=== PATIENT | female | born 1980 | race Caucasian/White ===

== ENCOUNTER 2016-12-17 21:01 | Emergency (ER) | payer BC ==
[~2016-12-17 21:01] MED LIST: AMBIEN10 M1 PO; AMOXICILLIN250 M1 PO; ANTIBIOTIC; ASPIRIN81 M1 PO; ATIVAN1 M2 PO; CALCIUM500 M3 PO; CYCLOBENZAPRINE5 M1 PO; HYDROCODON-ACE1 EA16 PO; HYDROCODON-ACE1 EA17 PO; IBUPROFEN200 M3 PO; KLONOPIN1 M1 PO; LAMICTAL200 M2 PO; MOBIC7.5 M2 PO; NICODERM CQ1 EAC2 TD; NO HOME MEDICATION XX; NORCO 5-325 TA1 EACH PO; PERCOCET 5-3251 EACH PO; REMERON; REMERON30 M1 PO; SYNTHROID137 MC1 PO; TRAZODONE HCL50 M1 PO; ZOLOFT25 M1 PO
[2016-12-17 22:33] LABS: URINE APPEARANCE HAZY; URINE BILIRUBIN NEGATIVE (NEG); URINE COLOR YELLOW; URINE GLUCOSE (UA) NEGATIVE (NEG); URINE KETONE NEGATIVE (NEG); URINE LEUKOCYTE ESTERASE POSITIVE (NEG); URINE PH 6.5 (5.0-8.0); URINE PROTEIN NEGATIVE (NEG)
[2016-12-17 22:34] LABS: URINE BLOOD SMALL (NEG); URINE NITRITE NEGATIVE (NEG)
[2016-12-17 22:41] LABS: URINE BACTERIA 1+; URINE EPITHELIAL CELLS RARE /[HPF] (0-10); URINE RBC 0-3 /[HPF] (0-5)
[2016-12-17 23:32] LABS: BASO % 0.4 % (0-2); BASO ABSOLUTE COUNT 0.1 tho/cmm (0.0-0.2); EOS % 1.4 % (0-7); EOSINOPHIL ABSOLUTE COUNT 0.2 tho/cmm (0.0-0.7); HCT-HEMATOCRIT 33.4 % (34.0-49.0); HGB-HEMOGLOBIN 10.7 gm/dl (12.0-15.5); IMMATURE GRANULOCYTES ABSOLUTE 0.04 tho/cmm (0-0.03); IMMATURE GRANULOCYTES PERCENT 0.3 % (0-0.3); LYMPH % 33.5 % (20-45); LYMPH ABSOLUTE COUNT 4.1 tho/cmm (0.8-4.5); MCH (MEAN CORPUSCULAR HGB) 25.2 pg (28.0-32.0); MCV (MEAN CELL VOLUME) 78.8 fl (82.0-96.0); MEAN PLATELET VOLUME 9.7 cmc (9.4-12.4); MONO % 4.5 % (0-12); MONOCYTE ABSOLUTE COUNT 0.6 tho/cmm (0.0-1.2); NEUTROPHIL ABSOLUTE COUNT 7.2 tho/cmm (1.6-8.0); NEUTROPHIL-AUTOMATED 7.2 tho/cmm (1.6-8.0); NEUTROPHILS % 59.9 % (40-80); PLATELET COUNT 510 tho/cmm (150-450); RED BLOOD COUNT 4.24 mil/cmm (4.00-5.20); RED CELL DISTRIBUTION WIDTH 14.9 % (12.4-16.4); WHITE BLOOD COUNT 12.1 tho/cmm (4.0-10.0)
[2016-12-17 23:46] LABS: ANION GAP 12 mmol/L (0-20); BLOOD UREA NITROGEN 8 mg/dl (6-24); CALCIUM 8.4 mg/dl (8.5-10.5); CARBON DIOXIDE-VENOUS 25 mmol/L (22-32); CHLORIDE 108 mmol/l (96-110); GLUCOSE 99 mg/dL (70-110); POTASSIUM 3.7 mmol/L (3.7-5.1); SODIUM 141 mmol/L (135-145); eGFR VALUE FOR BLACK >90 mL/Min
[2016-12-18] MEDS ORDERED: BACTRIM DS TAB1 EAC2 PO (00:37)
[2016-12-18] MEDS ORDERED: PYRIDIUM200 M2 PO (00:37)
[2016-12-23] MEDS ORDERED: LYRICA100 MG/CAP PO (17:11)
[2016-12-23] MEDS ORDERED: METROGEL-VAGINA70 G1 VG (19:32)
[2016-12-23] MEDS ORDERED: CYCLOBENZAPRINE10 M1 PO (20:05)
[2016-12-23] MEDS ORDERED: NORCO 5-325 TA1 EACH PO (20:05)
[2017-03-26] MEDS ORDERED: ONDANSETRON ODT4 M1 PO (16:01)
[2017-03-26] MEDS ORDERED: SPRINTEC 28 DA1 EACH PO (16:01)
[2017-03-26] MEDS ORDERED: OMEPRAZOLE40 M2 PO (16:01)
[2017-03-26] MEDS ORDERED: IMITREX50 M2 PO (16:02)
== END 2016-12-18 00:59 ==
LOC: EDMED 21:01
PROVIDERS: Emergency Medicine; Physician Assistant
DX: N30.91 Cystitis, unspecified with hematuria (principal); K58.9 Irritable bowel syndrome, unspecified; F43.10 Post-traumatic stress disorder, unspecified; F31.9 Bipolar disorder, unspecified; E03.9 Hypothyroidism, unspecified; F41.9 Anxiety disorder, unspecified; Z90.49 Acquired absence of other specified parts of digestive tract; Z79.890 Hormone replacement therapy; Z79.899 Other long term (current) drug therapy
CPT/HCPCS: J2270; J2405; J7030

== ENCOUNTER 2016-12-23 20:09 | Emergency (ER) | payer BC ==
[2016-12-23 18:56] LABS: BASO % 0.3 % (0-2); EOS % 1.1 % (0-7); EOSINOPHIL ABSOLUTE COUNT 0.1 tho/cmm (0.0-0.7); HCT-HEMATOCRIT 32.4 % (34.0-49.0); HGB-HEMOGLOBIN 10.5 gm/dl (12.0-15.5); IMMATURE GRANULOCYTES ABSOLUTE 0.03 tho/cmm (0-0.03); IMMATURE GRANULOCYTES PERCENT 0.3 % (0-0.3); LYMPH % 23.8 % (20-45); LYMPH ABSOLUTE COUNT 2.5 tho/cmm (0.8-4.5); MCH (MEAN CORPUSCULAR HGB) 25.4 pg (28.0-32.0); MCHC MEAN CORPUSCULAR HGB CONC 32.4 % (32.0-36.0); MCV (MEAN CELL VOLUME) 78.3 fl (82.0-96.0); MEAN PLATELET VOLUME 9.9 cmc (9.4-12.4); MONO % 4.2 % (0-12); MONOCYTE ABSOLUTE COUNT 0.4 tho/cmm (0.0-1.2); NEUTROPHIL ABSOLUTE COUNT 7.3 tho/cmm (1.6-8.0); NEUTROPHIL-AUTOMATED 7.3 tho/cmm (1.6-8.0); NEUTROPHILS % 70.3 % (40-80); PLATELET COUNT 482 tho/cmm (150-450); RED BLOOD COUNT 4.14 mil/cmm (4.00-5.20); RED CELL DISTRIBUTION WIDTH 15.3 % (12.4-16.4); WHITE BLOOD COUNT 10.4 tho/cmm (4.0-10.0)
[2016-12-23 19:07] LABS: ANION GAP 9 mmol/L (0-20); BLOOD UREA NITROGEN 7 mg/dl (6-24); CALCIUM 8.6 mg/dl (8.5-10.5); CARBON DIOXIDE-VENOUS 25 mmol/L (22-32); CHLORIDE 110 mmol/l (96-110); CREATININE 0.95 mg/dl (0.50-1.10); GLUCOSE 98 mg/dL (70-110); POTASSIUM 4.2 mmol/L (3.7-5.1); SODIUM 140 mmol/L (135-145); eGFR VALUE FOR BLACK 88 mL/Min
[~2016-12-23 20:09] MED LIST changes: +BACTRIM DS TAB1 EAC2 PO; +CYCLOBENZAPRINE10 M1 PO; +LYRICA100 MG/CAP PO; +METROGEL-VAGINA70 G1 VG; +PYRIDIUM200 M2 PO
[2017-03-26] MEDS ORDERED: ONDANSETRON ODT4 M1 PO (16:01)
[2017-03-26] MEDS ORDERED: SPRINTEC 28 DA1 EACH PO (16:01)
[2017-03-26] MEDS ORDERED: OMEPRAZOLE40 M2 PO (16:01)
[2017-03-26] MEDS ORDERED: IMITREX50 M2 PO (16:02)
== END 2016-12-23 20:16 ==
LOC: EDMED 20:09
PROVIDERS: Emergency Medicine
DX: F41.0 Panic disorder [episodic paroxysmal anxiety] (principal); M25.512 Pain in left shoulder; R07.89 Other chest pain; F17.210 Nicotine dependence, cigarettes, uncomplicated
CPT/HCPCS: J1885; J2060

== ENCOUNTER 2017-01-03 02:02 | Emergency (ER) | payer BC ==
[2017-01-03 03:13] LABS: URINE BILIRUBIN NEGATIVE (NEG); URINE BLOOD NEGATIVE (NEG); URINE GLUCOSE (UA) NEGATIVE (NEG); URINE KETONE NEGATIVE (NEG); URINE LEUKOCYTE ESTERASE NEGATIVE (NEG); URINE NITRITE NEGATIVE (NEG); URINE PROTEIN NEGATIVE (NEG); URINE SPECIFIC GRAVITY 1.005 (1.003-1.030)
[2017-01-03 03:23] LABS: URINE APPEARANCE CLEAR; URINE COLOR YELLOW
[2017-01-03 03:55] LABS: BASO % 0.2 % (0-2); EOS % 2.3 % (0-7); EOSINOPHIL ABSOLUTE COUNT 0.2 tho/cmm (0.0-0.7); HCT-HEMATOCRIT 30.8 % (34.0-49.0); HGB-HEMOGLOBIN 9.8 gm/dl (12.0-15.5); IMMATURE GRANULOCYTES ABSOLUTE 0.01 tho/cmm (0-0.03); IMMATURE GRANULOCYTES PERCENT 0.1 % (0-0.3); LYMPH ABSOLUTE COUNT 2.3 tho/cmm (0.8-4.5); MCHC MEAN CORPUSCULAR HGB CONC 31.8 % (32.0-36.0); MCV (MEAN CELL VOLUME) 78.6 fl (82.0-96.0); MEAN PLATELET VOLUME 9.8 cmc (9.4-12.4); MONOCYTE ABSOLUTE COUNT 0.5 tho/cmm (0.0-1.2); NEUTROPHIL ABSOLUTE COUNT 6.6 tho/cmm (1.6-8.0); NEUTROPHIL-AUTOMATED 6.6 tho/cmm (1.6-8.0); NEUTROPHILS % 68.4 % (40-80); PLATELET COUNT 416 tho/cmm (150-450); RED BLOOD COUNT 3.92 mil/cmm (4.00-5.20); RED CELL DISTRIBUTION WIDTH 14.9 % (12.4-16.4); WHITE BLOOD COUNT 9.7 tho/cmm (4.0-10.0)
[2017-01-03 04:13] LABS: ALB/GLOB RATIO 0.8 (0.8-2.0); ALBUMIN 3.1 g/dl (3.5-5.0); ALKALINE PHOSPHATASE 137 U/L (33-138); ALT/SGPT 10 U/L (12-78); ANION GAP 10 mmol/L (0-20); AST/SGOT 11 U/L (10-40); BILIRUBIN,TOTAL 0.2 mg/dl (0-1.5); BLOOD UREA NITROGEN 6 mg/dl (6-24); CALCIUM 8.4 mg/dl (8.5-10.5); CARBON DIOXIDE-VENOUS 26 mmol/L (22-32); CHLORIDE 109 mmol/l (96-110); CREATININE 0.86 mg/dl (0.50-1.10); GLUCOSE 113 mg/dL (70-110); POTASSIUM 3.9 mmol/L (3.7-5.1); SODIUM 141 mmol/L (135-145); eGFR VALUE FOR BLACK >90 mL/Min
[2017-01-03] MEDS ORDERED: LODINE400 M2 PO (04:13)
[2017-03-26] MEDS ORDERED: SPRINTEC 28 DA1 EACH PO (16:01)
[2017-03-26] MEDS ORDERED: ONDANSETRON ODT4 M1 PO (16:01)
[2017-03-26] MEDS ORDERED: OMEPRAZOLE40 M2 PO (16:01)
[2017-03-26] MEDS ORDERED: IMITREX50 M2 PO (16:02)
== END 2017-01-03 04:30 ==
LOC: EDMED 02:02
PROVIDERS: Emergency Medicine
DX: N83.291 Other ovarian cyst, right side (principal); Z87.442 Personal history of urinary calculi; Z90.49 Acquired absence of other specified parts of digestive tract; Z98.890 Other specified postprocedural states; Z90.710 Acquired absence of both cervix and uterus
CPT/HCPCS: J1885; J2405; J7030

== ENCOUNTER 2017-01-26 18:00 | Emergency (ER) | payer BC ==
[~2017-01-26 18:00] MED LIST changes: +LODINE400 M2 PO
[2017-01-26] MEDS ORDERED: WELLBUTRIN XL150 M1 PO (18:19)
[2017-01-26] MEDS ORDERED: OMEPRAZOLE20 M4 PO (19:06)
[2017-03-26] MEDS ORDERED: ONDANSETRON ODT4 M1 PO (16:01)
[2017-03-26] MEDS ORDERED: SPRINTEC 28 DA1 EACH PO (16:01)
[2017-03-26] MEDS ORDERED: OMEPRAZOLE40 M2 PO (16:01)
[2017-03-26] MEDS ORDERED: IMITREX50 M2 PO (16:02)
== END 2017-01-26 19:18 ==
LOC: EDMED 18:00
DX: F41.0 Panic disorder [episodic paroxysmal anxiety] (principal); K21.9 Gastro-esophageal reflux disease without esophagitis

== ENCOUNTER 2017-02-02 14:56 | Emergency (ER) | payer BC ==
[~2017-02-02 14:56] MED LIST changes: +OMEPRAZOLE20 M4 PO; +WELLBUTRIN XL150 M1 PO
[2017-02-02] MEDS ORDERED: OMEPRAZOLE20 M3 PO (16:30)
[2017-02-02] MEDS ORDERED: ATIVAN0.5 M1 SL (16:32)
[2017-02-02] MEDS ORDERED: MOBIC7.5 M2 PO (16:34)
[2017-02-02] MEDS ORDERED: SPRINTEC 28 DA1 EACH PO (16:35)
[2017-02-02 17:11] LABS: BASO % 0.3 % (0-2); EOS % 1.4 % (0-7); EOSINOPHIL ABSOLUTE COUNT 0.1 tho/cmm (0.0-0.7); HCT-HEMATOCRIT 32.4 % (34.0-49.0); HGB-HEMOGLOBIN 10.2 gm/dl (12.0-15.5); IMMATURE GRANULOCYTES ABSOLUTE 0.02 tho/cmm (0-0.03); IMMATURE GRANULOCYTES PERCENT 0.2 % (0-0.3); LYMPH % 24.1 % (20-45); LYMPH ABSOLUTE COUNT 2.5 tho/cmm (0.8-4.5); MCH (MEAN CORPUSCULAR HGB) 23.7 pg (28.0-32.0); MCHC MEAN CORPUSCULAR HGB CONC 31.5 % (32.0-36.0); MCV (MEAN CELL VOLUME) 75.2 fl (82.0-96.0); MEAN PLATELET VOLUME 9.6 cmc (9.4-12.4); MONO % 5.9 % (0-12); MONOCYTE ABSOLUTE COUNT 0.6 tho/cmm (0.0-1.2); NEUTROPHILS % 68.1 % (40-80); PLATELET COUNT 432 tho/cmm (150-450); RED BLOOD COUNT 4.31 mil/cmm (4.00-5.20); RED CELL DISTRIBUTION WIDTH 15.1 % (12.4-16.4); WHITE BLOOD COUNT 10.3 tho/cmm (4.0-10.0)
[2017-02-02 17:13] LABS: URINE APPEARANCE CLEAR; URINE BILIRUBIN NEGATIVE (NEG); URINE BLOOD NEGATIVE (NEG); URINE COLOR YELLOW; URINE GLUCOSE (UA) NEGATIVE (NEG); URINE KETONE NEGATIVE (NEG); URINE LEUKOCYTE ESTERASE NEGATIVE (NEG); URINE NITRITE NEGATIVE (NEG); URINE PH 6.5 (5.0-8.0); URINE PROTEIN NEGATIVE (NEG)
[2017-02-02 17:21] LABS: ANION GAP 11 mmol/L (0-20); BLOOD UREA NITROGEN 11 mg/dl (6-24); CALCIUM 8.2 mg/dl (8.5-10.5); CARBON DIOXIDE-VENOUS 24 mmol/L (22-32); CHLORIDE 108 mmol/l (96-110); CREATININE 0.97 mg/dl (0.50-1.10); GLUCOSE 82 mg/dL (70-110); LIPASE 193 U/L (73-393); POTASSIUM 4.1 mmol/L (3.7-5.1); SODIUM 139 mmol/L (135-145); eGFR VALUE FOR BLACK 86 mL/Min
[2017-02-02] MEDS ORDERED: PROMETHAZINE12.5 M2 PO (19:04)
[2017-03-26] MEDS ORDERED: OMEPRAZOLE40 M2 PO (16:01)
[2017-03-26] MEDS ORDERED: SPRINTEC 28 DA1 EACH PO (16:01)
[2017-03-26] MEDS ORDERED: ONDANSETRON ODT4 M1 PO (16:01)
[2017-03-26] MEDS ORDERED: IMITREX50 M2 PO (16:02)
== END 2017-02-02 19:38 ==
LOC: EDMED 14:56
PROVIDERS: Emergency Medicine
DX: R11.2 Nausea with vomiting, unspecified (principal); R10.84 Generalized abdominal pain; K21.9 Gastro-esophageal reflux disease without esophagitis; F31.9 Bipolar disorder, unspecified; F41.9 Anxiety disorder, unspecified; Z90.710 Acquired absence of both cervix and uterus; Z98.890 Other specified postprocedural states; Z90.49 Acquired absence of other specified parts of digestive tract; Z79.899 Other long term (current) drug therapy; Z79.890 Hormone replacement therapy; F17.200 Nicotine dependence, unspecified, uncomplicated
CPT/HCPCS: J1170; J2405; J2550; J7030; Q9967

== ENCOUNTER 2017-03-05 16:32 | Emergency (ER) | payer BC ==
[~2017-03-05 16:32] MED LIST changes: +ATIVAN0.5 M1 SL; +OMEPRAZOLE20 M3 PO; +PROMETHAZINE12.5 M2 PO; +SPRINTEC 28 DA1 EACH PO
[2017-03-05 18:23] LABS: URINE BILIRUBIN NEGATIVE (NEG); URINE BLOOD NEGATIVE (NEG); URINE GLUCOSE (UA) NEGATIVE (NEG); URINE KETONE NEGATIVE (NEG); URINE LEUKOCYTE ESTERASE NEGATIVE (NEG); URINE NITRITE NEGATIVE (NEG); URINE PROTEIN NEGATIVE (NEG)
[2017-03-05 18:25] LABS: URINE APPEARANCE CLEAR; URINE COLOR YELLOW
[2017-03-05 18:28] LABS: URINE EPITHELIAL CELLS 0 /[HPF] (0-10); URINE RBC 0 /[HPF] (0-5); URINE WBC 0 /[HPF] (0-5)
[2017-03-05 18:33] LABS: BASO % 0.5 % (0-2); BASO ABSOLUTE COUNT 0.1 tho/cmm (0.0-0.2); EOS % 1.2 % (0-7); EOSINOPHIL ABSOLUTE COUNT 0.1 tho/cmm (0.0-0.7); HCT-HEMATOCRIT 35.7 % (34.0-49.0); HGB-HEMOGLOBIN 11.4 gm/dl (12.0-15.5); IMMATURE GRANULOCYTES ABSOLUTE 0.02 tho/cmm (0-0.03); IMMATURE GRANULOCYTES PERCENT 0.2 % (0-0.3); LYMPH % 22.5 % (20-45); LYMPH ABSOLUTE COUNT 2.3 tho/cmm (0.8-4.5); MCH (MEAN CORPUSCULAR HGB) 23.5 pg (28.0-32.0); MCHC MEAN CORPUSCULAR HGB CONC 31.9 % (32.0-36.0); MCV (MEAN CELL VOLUME) 73.5 fl (82.0-96.0); MEAN PLATELET VOLUME 9.5 cmc (9.4-12.4); MONO % 4.1 % (0-12); MONOCYTE ABSOLUTE COUNT 0.4 tho/cmm (0.0-1.2); NEUTROPHIL ABSOLUTE COUNT 7.4 tho/cmm (1.6-8.0); NEUTROPHIL-AUTOMATED 7.4 tho/cmm (1.6-8.0); NEUTROPHILS % 71.5 % (40-80); PLATELET COUNT 446 tho/cmm (150-450); RED BLOOD COUNT 4.86 mil/cmm (4.00-5.20); RED CELL DISTRIBUTION WIDTH 15.2 % (12.4-16.4); WHITE BLOOD COUNT 10.3 tho/cmm (4.0-10.0)
[2017-03-05 18:56] LABS: ALB/GLOB RATIO 0.7 (0.8-2.0); ALBUMIN 3.2 g/dl (3.5-5.0); ALKALINE PHOSPHATASE 197 U/L (33-138); ALT/SGPT 12 U/L (12-78); ANION GAP 12 mmol/L (0-20); AST/SGOT 8 U/L (10-40); BILIRUBIN,TOTAL 0.2 mg/dl (0-1.5); BLOOD UREA NITROGEN 6 mg/dl (6-24); CALCIUM 8.4 mg/dl (8.5-10.5); CARBON DIOXIDE-VENOUS 25 mmol/L (22-32); CHLORIDE 103 mmol/l (96-110); CREATININE 0.96 mg/dl (0.50-1.10); GLUCOSE 78 mg/dL (70-110); LIPASE 150 U/L (73-393); POTASSIUM 3.9 mmol/L (3.7-5.1); SODIUM 136 mmol/L (135-145); eGFR VALUE FOR BLACK 87 mL/Min
[2017-03-05] MEDS ORDERED: ZOFRAN4 M2 PO (20:51)
[2017-03-05] MEDS ORDERED: NORCO 5-325 TA1 EACH PO (20:51)
[2017-03-26] MEDS ORDERED: OMEPRAZOLE40 M2 PO (16:01)
[2017-03-26] MEDS ORDERED: SPRINTEC 28 DA1 EACH PO (16:01)
[2017-03-26] MEDS ORDERED: ONDANSETRON ODT4 M1 PO (16:01)
[2017-03-26] MEDS ORDERED: IMITREX50 M2 PO (16:02)
== END 2017-03-05 21:39 ==
LOC: EDMED 16:32
PROVIDERS: Physician Assistant
DX: R51 Headache (principal); R10.13 Epigastric pain; R11.2 Nausea with vomiting, unspecified; F31.9 Bipolar disorder, unspecified; E03.9 Hypothyroidism, unspecified; F43.10 Post-traumatic stress disorder, unspecified; Z87.442 Personal history of urinary calculi; F17.210 Nicotine dependence, cigarettes, uncomplicated; Z90.710 Acquired absence of both cervix and uterus; Z90.89 Acquired absence of other organs; Z98.890 Other specified postprocedural states; Z79.899 Other long term (current) drug therapy; Z79.890 Hormone replacement therapy
CPT/HCPCS: J2270; J2405; J7030; Q9967

== ENCOUNTER 2017-03-11 23:08 | Emergency (ER) | payer BC ==
[~2017-03-11 23:08] MED LIST changes: +ZOFRAN4 M2 PO
[2017-03-12 00:05] LABS: BASO % 0.4 % (0-2); EOS % 1.9 % (0-7); EOSINOPHIL ABSOLUTE COUNT 0.2 tho/cmm (0.0-0.7); HCT-HEMATOCRIT 33.8 % (34.0-49.0); HGB-HEMOGLOBIN 10.8 gm/dl (12.0-15.5); IMMATURE GRANULOCYTES ABSOLUTE 0.02 tho/cmm (0-0.03); IMMATURE GRANULOCYTES PERCENT 0.2 % (0-0.3); LYMPH % 27.9 % (20-45); LYMPH ABSOLUTE COUNT 3.1 tho/cmm (0.8-4.5); MCH (MEAN CORPUSCULAR HGB) 23.5 pg (28.0-32.0); MCV (MEAN CELL VOLUME) 73.6 fl (82.0-96.0); MEAN PLATELET VOLUME 9.6 cmc (9.4-12.4); MONO % 5.7 % (0-12); MONOCYTE ABSOLUTE COUNT 0.6 tho/cmm (0.0-1.2); NEUTROPHIL ABSOLUTE COUNT 7.2 tho/cmm (1.6-8.0); NEUTROPHIL-AUTOMATED 7.2 tho/cmm (1.6-8.0); NEUTROPHILS % 63.9 % (40-80); PLATELET COUNT 452 tho/cmm (150-450); RED BLOOD COUNT 4.59 mil/cmm (4.00-5.20); RED CELL DISTRIBUTION WIDTH 15.6 % (12.4-16.4); WHITE BLOOD COUNT 11.2 tho/cmm (4.0-10.0)
[2017-03-12 00:18] LABS: PREGNANCY-SERUM NEGATIVE (NEGATIVE)
[2017-03-12 00:20] LABS: URINE BILIRUBIN NEGATIVE (NEG); URINE BLOOD NEGATIVE (NEG); URINE GLUCOSE (UA) NEGATIVE (NEG); URINE KETONE NEGATIVE (NEG); URINE LEUKOCYTE ESTERASE NEGATIVE (NEG); URINE NITRITE NEGATIVE (NEG); URINE PH 6.5 (5.0-8.0); URINE PROTEIN NEGATIVE (NEG)
[2017-03-12 00:20] LABS: ALB/GLOB RATIO 0.6 (0.8-2.0); ALKALINE PHOSPHATASE 209 U/L (33-138); ALT/SGPT 18 U/L (12-78); ANION GAP 11 mmol/L (0-20); AST/SGOT 9 U/L (10-40); BLOOD UREA NITROGEN 6 mg/dl (6-24); CALCIUM 8.3 mg/dl (8.5-10.5); CARBON DIOXIDE-VENOUS 22 mmol/L (22-32); CHLORIDE 109 mmol/l (96-110); CREATININE 0.95 mg/dl (0.50-1.10); LIPASE 231 U/L (73-393); POTASSIUM 3.6 mmol/L (3.7-5.1); SODIUM 138 mmol/L (135-145); eGFR VALUE FOR BLACK 88 mL/Min
[2017-03-12 00:21] LABS: GLUCOSE 68 mg/dL (70-110)
[2017-03-12 00:22] LABS: URINE APPEARANCE CLEAR; URINE COLOR YELLOW
[2017-03-12 00:22] LABS: BILIRUBIN,TOTAL <0.1 mg/dl (0-1.5)
[2017-03-26] MEDS ORDERED: ONDANSETRON ODT4 M1 PO (16:01)
[2017-03-26] MEDS ORDERED: OMEPRAZOLE40 M2 PO (16:01)
[2017-03-26] MEDS ORDERED: SPRINTEC 28 DA1 EACH PO (16:01)
[2017-03-26] MEDS ORDERED: IMITREX50 M2 PO (16:02)
== END 2017-03-12 01:15 ==
LOC: EDMED 23:08
PROVIDERS: Physician Assistant
DX: R10.11 Right upper quadrant pain (principal); F41.9 Anxiety disorder, unspecified; F32.9 Major depressive disorder, single episode, unspecified; Z90.49 Acquired absence of other specified parts of digestive tract; Z90.89 Acquired absence of other organs; Z88.8 Allergy status to other drugs, medicaments and biological substances
CPT/HCPCS: J2270; J2405; J7030